=== PATIENT | male | born 1970 | race Caucasian/White ===

== ENCOUNTER 2023-03-31 18:47 | Emergency (ER) | payer MEDICAID ==
[~2023-03-31] VITALS: Ht 167.6 cm; Wt 68.0 kg
[2023-03-31 18:54] VITALS: BP 121/78; PULSE 98; RESP 16; TEMP 98.2; O2SAT 98
[2023-03-31] MEDS ORDERED: LIDOCAINE HCL 1% 20ML VIAL (Pyxis) INJ INFIL ONE (20:30)
[2023-03-31] MEDS ORDERED: TETANUS, DIPHTHERIA, PERTUSSIS VAC/PF 0.5ML (>10YR OLD) IM ONE (20:30)
== END 2023-03-31 22:11 | disposition home or self-care (01) ==
LOC: ER 18:47
DX: S51.812A Laceration without foreign body of left forearm, initial encounter (principal); E11.9 Type 2 diabetes mellitus without complications; W25.XXXA Contact with sharp glass, initial encounter; Y93.89 Activity, other specified; Y92.89 Other specified places as the place of occurrence of the external cause; Y99.8 Other external cause status
CPT/HCPCS: 90715; 12002; 90471; 99283; Z7610